=== PATIENT | male | born 1940 | race Caucasian/White ===

== ENCOUNTER 2016-10-05 10:04 | Emergency (ER) | payer OTHER ==
[~2016-10-05] VITALS: Ht 182.9 cm; Wt 90.7 kg
[~2016-10-05 10:04] MED LIST: ASPI325T2 PO; LISI-209 PO; LUTE20TA PO; PARO20TA51 PO
[2016-10-05 10:09] VITALS: BP_SYST 165
--- NOTE | 2016-10-05 10:16 | NUR ---
Placed in room 3 . Placed on director of cardiac cath lab, blood pressure machine and pulse oximeter. To gown for exam. Side rails up. Report given to Yin FAYE.
--- NOTE | 2016-10-05 10:18 | NUR ---
DR LAWRENCE AT [facility] FOR EVALUATION. PT STATES SHARP CHEST PAIN LAST NIGHT AT 2100, LASTING 2 SECONDS. DENIES ANY CHEST PAIN AT THIS TIME. PT IS [place], ABLE TO MAKE NEEDS KNOWN.
[2016-10-05 10:33] LABS: BASOPHILS % (AUTO) 0.5 % (0.0-2.0); EOSINOPHILS % (AUTO) 0.5 % (0.0-4.0); HEMATOCRIT 41.9 % (36-54); HEMOGLOBIN 14.3 g/dL (14.0-18.0); LYMPHOCYTES # (AUTO) 0.7 K/uL (1.0-5.5); MEAN CORPUSCULAR HEMOGLOBIN 29 pg (27-31); MEAN CORPUSCULAR HGB CONC 34 % (32-36); MEAN CORPUSCULAR VOLUME 86 fL (79.0-98.0); MONOCYTES # (AUTO) 0.7 K/uL (0.0-1.0); MONOCYTES % (AUTO) 8.3 % (1.7-9.3); NEUTROPHILS # (AUTO) 6.8 K/uL (1.8-7.7); NEUTROPHILS % (AUTO) 82.7 % (40.0-70.0); PLATELET COUNT (AUTO) 265 K/uL (130-430); RED BLOOD CELL COUNT(AUTO) 4.87 MIL/uL (4.2-6.2); RED CELL DISTRIBUTION WIDTH 12.3 % (9.0-15.0); WHITE BLOOD COUNT (AUTO) 8.2 K/uL (4.8-10.8)
[2016-10-05] MEDS ORDERED: ASCO500T20 PO (10:33)
[2016-10-05] MEDS ORDERED: VITD400 PO (10:33)
[2016-10-05 10:41] LABS: ANION GAP 3 (5-15); CALCIUM 8.6 mg/dL (8.4-11.0); CHLORIDE 104 mmol/L (98-107); GLUCOSE 133 mg/dL (70-99); POTASSIUM 3.2 mmol/L (3.5-5.1); SODIUM SERUM 136 mmol/L (136-145); UREA NITROGEN, BLOOD 17 mg/dL (8-21)
[2016-10-05 10:44] LABS: INR 1.1 (0.80-1.20); PROTHROMBIN TIME 11.6 SECS (9.5-12.5)
--- NOTE | 2016-10-05 10:45 | NUR ---
NO FURTHER COMPLAINTS OF PAIN OR CHEST PAIN
[2016-10-05 10:46] LABS: ALANINE AMINOTRANSFERASE 16 U/L (12-78); ALBUMIN 3.7 g/dL (3.4-4.8); ASPARTATE AMINOTRANSFERASE 12 U/L (10-37); CREATINE KINASE, TOTAL 48 U/L (39-308); TOTAL BILIRUBIN 0.9 mg/dL (0.0-1.0); TOTAL PROTEIN, SERUM 7.3 g/dL (6.4-8.3)
--- NOTE | 2016-10-05 11:11 | NUR ---
DR LAWRENCE AT BEDSIDE FOR RE-EVALUATION
[2016-10-05 11:19] VITALS: BP_SYST 147
--- NOTE | 2016-10-05 11:19 | NUR ---
Patient given written and verbal discharge instructions and verbalizes understanding. ER MD discussed with patient the results and treatment provided. Given copies of tests performed in ER. Patient in stable condition. ID arm band removed. IV catheter removed intact and dressing applied, no active bleeding. Rx of IBUPROFEN given. Patient educated on pain management and to follow up with PMD. Pain Scale 0/10. Opportunity for questions provided and answered.
== END 2016-10-05 11:19 | disposition home or self-care (01) ==
LOC: SED 10:04
DX: R07.89 Other chest pain (principal); Z85.068 Personal history of other malignant neoplasm of small intestine
CPT/HCPCS: 36415; 71010; 80053; 82550-TC; 83880; 84484; 85025; 85610-TC; 85730-TC; 99285

== ENCOUNTER 2018-09-29 10:05 | Emergency (ER) | payer OTHER ==
[~2018-09-29] VITALS: Ht 180.3 cm; Wt 95.3 kg
[~2018-09-29 10:05] MED LIST changes: +ASCO500T20 PO; +ASPI-858 PO; -ASPI325T2 PO; +PARO-63 PO; -PARO20TA51 PO; +VITD400 PO
[2018-09-29 10:14] VITALS: BP_SYST 165
[2018-09-29 12:37] VITALS: BP_SYST 165
== END 2018-09-29 12:37 | disposition home or self-care (01) ==
LOC: SED 10:05
DX: S01.112A Laceration without foreign body of left eyelid and periocular area, initial encounter (principal); Z85.068 Personal history of other malignant neoplasm of small intestine; Z79.82 Long term (current) use of aspirin; Z79.899 Other long term (current) drug therapy; W01.198A Fall on same level from slipping, tripping and stumbling with subsequent striking against other object, initial encounter; Y93.01 Activity, walking, marching and hiking; Y92.89 Other specified places as the place of occurrence of the external cause; Y99.8 Other external cause status
CPT/HCPCS: 70450-TC; 99284

== ENCOUNTER 2019-04-01 18:37 | Emergency (ER) | payer OTHER ==
[~2019-04-01] VITALS: Ht 182.9 cm; Wt 81.6 kg
[2019-04-01 18:48] VITALS: BP_SYST 167
--- NOTE | 2019-04-01 18:50 | NUR ---
Patient to ER bed 08 to gown for evaluation. Side rails up.
--- NOTE | 2019-04-01 18:52 | NUR ---
Pt brought by , Lorraine&Ox4, pt presens to ER with pain on L upper abdomen and nausea, skin pink and warm, cap refill <3, afebrile, VSS, respirations even and unlabored. Addendum: 04/01/19 at 1905 by SDEDAFJ Per pt also has swelling of the nose for couple days, skin pink and warm, cap refill <3.
--- NOTE | 2019-04-01 18:55 | NUR ---
Dr Gonzales at bedside examining patient
[2019-04-01 19:38] LABS: BASOPHILS # (AUTO) 0.1 K/uL (0.0-0.2); BASOPHILS % (AUTO) 0.6 % (0.0-2.0); EOSINOPHILS % (AUTO) 0.5 % (0.0-4.0); HEMATOCRIT 38.3 % (36-54); HEMOGLOBIN 13.4 g/dL (14.0-18.0); LYMPHOCYTES # (AUTO) 0.4 K/uL (1.0-5.5); LYMPHOCYTES % (AUTO) 3.9 % (20.5-51.5); MEAN CORPUSCULAR HEMOGLOBIN 30 pg (27-31); MEAN CORPUSCULAR HGB CONC 35 % (32-36); MEAN CORPUSCULAR VOLUME 86 fL (79.0-98.0); MONOCYTES # (AUTO) 0.6 K/uL (0.0-1.0); MONOCYTES % (AUTO) 5.9 % (1.7-9.3); NEUTROPHILS # (AUTO) 8.9 K/uL (1.8-7.7); NEUTROPHILS % (AUTO) 89.1 % (40.0-70.0); PLATELET COUNT (AUTO) 275 K/uL (130-430); RED BLOOD CELL COUNT(AUTO) 4.47 MIL/uL (4.2-6.2)
[2019-04-01 19:49] LABS: BILIRUBIN,URINE NEGATIVE (NEGATIVE); BLOOD, URINE 3+ (NEGATIVE); CLARITY/URINE SL HAZY (CLEAR); COLOR,URINE YELLOW (YELLOW); GLUCOSE,URINE NEGATIVE (NEGATIVE); KETONES,URINE NEGATIVE (NEGATIVE); LEUKOCYTE ESTERASE ,URINE NEGATIVE (NEGATIVE); NITRITE, URINE NEGATIVE (NEGATIVE); PROTEIN URINE 1+ (NEGATIVE)
[2019-04-01 19:49] LABS: ANION GAP 7 (5-15); CALCIUM 8.8 mg/dL (8.4-11.0); CHLORIDE 103 mmol/L (98-107); CREATININE 1.05 mg/dL (0.55-1.30); GLUCOSE 116 mg/dL (70-99); POTASSIUM 3.3 mmol/L (3.5-5.1); SODIUM SERUM 141 mmol/L (136-145); UREA NITROGEN, BLOOD 14 mg/dL (8-21)
[2019-04-01 19:55] LABS: ALANINE AMINOTRANSFERASE 15 U/L (12-78); ALBUMIN 3.7 g/dL (3.4-4.8); ASPARTATE AMINOTRANSFERASE 16 U/L (10-37); TOTAL BILIRUBIN 0.5 mg/dL (0.0-1.0)
[2019-04-01 19:59] LABS: BACTERIA,URINE FEW /HPF (None Seen); MUCUS,URINE None Seen /LPF (None Seen); WBC,URINE 0-3 /HPF (0-3)
--- NOTE | 2019-04-01 20:00 | NUR ---
ER Dr. Saucedo at bedside examining patient.
[2019-04-01] MEDS ORDERED: MORPHINE 4 MG/ML INJ. SYRINGE IVP ONE (20:30)
--- NOTE | 2019-04-01 20:40 | NUR ---
During Morphine administration pt became nauseous and vomited. Dr. Saucedo was notified and pt was given 4mg of Zofran. Will continue to monitor.
[2019-04-01] MEDS ORDERED: ONDANSETRON HCL 4 MG/2 ML VIAL IVP ONE (20:45)
[2019-04-01] MEDS ORDERED: ONDANSETRON HCL 4 MG/2 ML VIAL ONE (20:52)
--- NOTE | 2019-04-01 21:20 | NUR ---
Pt is resting in bed no acute distress noted at this time. Will continue to monitor.
[2019-04-01] MEDS ORDERED: MAGNESIUM CITRATE 300 ML ORAL SOLUTION PO ONE (21:30)
[2019-04-01 21:39] VITALS: BP_SYST 142
--- NOTE | 2019-04-01 21:45 | NUR ---
Patient given written and verbal discharge instructions and verbalizes understanding. ER MD discussed with patient the results and treatment provided. Patient in stable condition. ID arm band removed. IV catheter removed intact and dressing applied, no active bleeding. Patient educated on pain management and to follow up with PMD. Pain Scale 0. Opportunity for questions provided and answered. Medication side effect fact sheet provided.
== END 2019-04-01 21:45 | disposition home or self-care (01) ==
LOC: SED 18:37
DX: K40.90 Unilateral inguinal hernia, without obstruction or gangrene, not specified as recurrent (principal); K59.00 Constipation, unspecified; Z85.068 Personal history of other malignant neoplasm of small intestine; Z79.82 Long term (current) use of aspirin; Z79.899 Other long term (current) drug therapy
CPT/HCPCS: 36415; 70486; 74176; 80053; 81000; 85025; 96374; 96375; 99284; J2270; J2405

== ENCOUNTER 2020-12-04 01:43 | Observation (INO) | payer OTHER, SELFPAY ==
[2020-12-04] VITALS (7 sets, daily range): BP systolic 101–158
[~2020-12-04] VITALS: Ht 182.9 cm; Wt 91.9 kg
[2020-12-04] MEDS ORDERED: DILTIAZEM HCL 25 MG/5 ML VIAL IVP ONE (02:15)
[2020-12-04 02:29] LABS: BASOPHILS % (AUTO) 0.4 % (0.0-2.0); EOSINOPHILS # (AUTO) 0.2 K/uL (0.0-0.4); HEMATOCRIT 40.3 % (36-54); HEMOGLOBIN 14.1 g/dL (14.0-18.0); LYMPHOCYTES # (AUTO) 0.8 K/uL (1.0-5.5); MEAN CORPUSCULAR HEMOGLOBIN 30 pg (27-31); MEAN CORPUSCULAR HGB CONC 35 % (32-36); MEAN CORPUSCULAR VOLUME 86 fL (79.0-98.0); MONOCYTES # (AUTO) 0.6 K/uL (0.0-1.0); MONOCYTES % (AUTO) 9.8 % (1.7-9.3); NEUTROPHILS # (AUTO) 4.4 K/uL (1.8-7.7); NEUTROPHILS % (AUTO) 73.8 % (40.0-70.0); PLATELET COUNT (AUTO) 233 K/uL (130-430); RED BLOOD CELL COUNT(AUTO) 4.69 MIL/uL (4.2-6.2); RED CELL DISTRIBUTION WIDTH 13.1 % (9.0-15.0); WHITE BLOOD COUNT (AUTO) 5.9 K/uL (4.8-10.8)
[2020-12-04 02:37] LABS: ANION GAP 7 (5-15); CHLORIDE 107 mmol/L (98-107); CREATININE 0.99 mg/dL (0.55-1.30); GLUCOSE 123 mg/dL (70-99); POTASSIUM 3.4 mmol/L (3.5-5.1); SODIUM SERUM 144 mmol/L (136-145); UREA NITROGEN, BLOOD 15 mg/dL (8-21)
[2020-12-04 02:39] LABS: PROTHROMBIN TIME 10.7 SECS (9.5-12.5)
[2020-12-04 02:41] LABS: ALANINE AMINOTRANSFERASE 18 U/L (12-78); ALBUMIN 3.4 g/dL (3.4-4.8); ASPARTATE AMINOTRANSFERASE 16 U/L (10-37); TOTAL BILIRUBIN 0.6 mg/dL (0.0-1.0)
[2020-12-04 05:10] LABS: BILIRUBIN,URINE NEGATIVE (NEGATIVE); BLOOD, URINE 1+ (NEGATIVE); CLARITY/URINE CLEAR (CLEAR); COLOR,URINE YELLOW (YELLOW); GLUCOSE,URINE NEGATIVE (NEGATIVE); KETONES,URINE NEGATIVE (NEGATIVE); LEUKOCYTE ESTERASE ,URINE NEGATIVE (NEGATIVE); NITRITE, URINE NEGATIVE (NEGATIVE); PROTEIN URINE TRACE (NEGATIVE)
[2020-12-04] MEDS ORDERED: LORazepam 2 MG/ML VIAL IVP PRN (05:30)
[2020-12-04] MEDS ORDERED: HYDROcodone/ACETAMIN 5-325 MG TAB (NORCO/ VICODIN) PO PRN (05:30)
[2020-12-04] MEDS ORDERED: NALOXONE HCL 0.4 MG/ML AMP (NARCAN) IVP PRN (05:30)
[2020-12-04] MEDS ORDERED: ALBUTEROL SULFATE 0.083% 2.5 MG/3 ML VIAL.NEB INH PRN (05:30)
[2020-12-04] MEDS ORDERED: MORPHINE 4 MG INJ. 4 MG/ML VIAL IVP PRN (05:30)
[2020-12-04 06:16] LABS: BACTERIA,URINE FEW /HPF (None Seen); WBC,URINE 0-3 /HPF (0-3)
[2020-12-04] MEDS: ASPIRIN 325 MG TABLET PO SCH (08:08)
[2020-12-04] MEDS: ENOXAPARIN SODIUM 40 MG/0.4 ML SYRINGE SUBCUT SCH (08:09)
[2020-12-04 08:55] LABS: BASOPHILS % (AUTO) 0.5 % (0.0-2.0); EOSINOPHILS # (AUTO) 0.1 K/uL (0.0-0.4); HEMATOCRIT 41.3 % (36-54); HEMOGLOBIN 14.3 g/dL (14.0-18.0); LYMPHOCYTES % (AUTO) 16.7 % (20.5-51.5); MEAN CORPUSCULAR HEMOGLOBIN 30 pg (27-31); MEAN CORPUSCULAR HGB CONC 35 % (32-36); MEAN CORPUSCULAR VOLUME 87 fL (79.0-98.0); MONOCYTES # (AUTO) 0.6 K/uL (0.0-1.0); MONOCYTES % (AUTO) 9.2 % (1.7-9.3); NEUTROPHILS # (AUTO) 4.4 K/uL (1.8-7.7); NEUTROPHILS % (AUTO) 71.6 % (40.0-70.0); PLATELET COUNT (AUTO) 223 K/uL (130-430); RED BLOOD CELL COUNT(AUTO) 4.75 MIL/uL (4.2-6.2); WHITE BLOOD COUNT (AUTO) 6.1 K/uL (4.8-10.8)
[2020-12-04] MEDS ORDERED: METOPROLOL SUCCINATE 25 MG TAB.SR.24H (TOPROL XL) PO ONE (09:00)
[2020-12-04 09:08] LABS: ALANINE AMINOTRANSFERASE 13 U/L (12-78); ALBUMIN 3.2 g/dL (3.4-4.8); ANION GAP 7 (5-15); ASPARTATE AMINOTRANSFERASE 16 U/L (10-37); CALCIUM 8.2 mg/dL (8.4-11.0); CHLORIDE 108 mmol/L (98-107); CREATININE 0.99 mg/dL (0.55-1.30); GLUCOSE 107 mg/dL (70-99); POTASSIUM 3.6 mmol/L (3.5-5.1); SODIUM SERUM 145 mmol/L (136-145); THYROID STIMULATING HORMONE 3.19 uIu/mL (0.36-3.74); TOTAL BILIRUBIN 0.8 mg/dL (0.0-1.0); UREA NITROGEN, BLOOD 14 mg/dL (8-21)
[2020-12-05 00:57] VITALS: BP_SYST 166
[2020-12-05 06:54] LABS: BASOPHILS % (AUTO) 0.8 % (0.0-2.0); EOSINOPHILS # (AUTO) 0.2 K/uL (0.0-0.4); EOSINOPHILS % (AUTO) 3.1 % (0.0-4.0); HEMATOCRIT 38.1 % (36-54); HEMOGLOBIN 13.1 g/dL (14.0-18.0); LYMPHOCYTES # (AUTO) 0.8 K/uL (1.0-5.5); LYMPHOCYTES % (AUTO) 16.5 % (20.5-51.5); MEAN CORPUSCULAR HEMOGLOBIN 30 pg (27-31); MEAN CORPUSCULAR HGB CONC 34 % (32-36); MEAN CORPUSCULAR VOLUME 86 fL (79.0-98.0); MONOCYTES # (AUTO) 0.4 K/uL (0.0-1.0); MONOCYTES % (AUTO) 9.1 % (1.7-9.3); NEUTROPHILS # (AUTO) 3.5 K/uL (1.8-7.7); NEUTROPHILS % (AUTO) 70.5 % (40.0-70.0); PLATELET COUNT (AUTO) 211 K/uL (130-430); RED BLOOD CELL COUNT(AUTO) 4.45 MIL/uL (4.2-6.2); RED CELL DISTRIBUTION WIDTH 12.8 % (9.0-15.0); WHITE BLOOD COUNT (AUTO) 4.9 K/uL (4.8-10.8)
[2020-12-05 07:25] LABS: ALANINE AMINOTRANSFERASE 14 U/L (12-78); ANION GAP 10 (5-15); ASPARTATE AMINOTRANSFERASE 16 U/L (10-37); CALCIUM 8.5 mg/dL (8.4-11.0); CHLORIDE 107 mmol/L (98-107); CREATININE 0.89 mg/dL (0.55-1.30); GLUCOSE 98 mg/dL (70-99); POTASSIUM 3.6 mmol/L (3.5-5.1); SODIUM SERUM 143 mmol/L (136-145); THYROID STIMULATING HORMONE 1.54 uIu/mL (0.36-3.74); UREA NITROGEN, BLOOD 18 mg/dL (8-21)
[2020-12-05 08:26] VITALS: BP_SYST 163
[2020-12-05] MEDS: ASPIRIN 325 MG TABLET PO SCH (08:42)
[2020-12-05] MEDS: ENOXAPARIN SODIUM 40 MG/0.4 ML SYRINGE SUBCUT SCH (08:44)
[2020-12-05] MEDS ORDERED: METOPROLOL SUCCINATE 25 MG TAB.SR.24H (TOPROL XL) PO SCH (09:00)
[2020-12-05] MEDS ORDERED: APIX5TAB4 PO (10:09)
[2020-12-05] MEDS ORDERED: METO-540 PO (10:09)
[2020-12-05 12:17] VITALS: BP_SYST 158
[2020-12-05 12:27] VITALS: BP_SYST 168
[2020-12-05] MEDS ORDERED: RIVAROXABAN 10 MG TABLET PO SCH (18:00)
[2020-12-06] MEDS ORDERED: METOPROLOL SUCCINATE 25 MG TAB.SR.24H (TOPROL XL) PO SCH (09:00)
== END 2020-12-05 14:55 | disposition home or self-care (01) ==
LOC: SED 01:43 → STU 02:49 → INTOOBSV 02:49 → STU 03:05
PROVIDERS: ADMIT Internal Medicine Hospice and Palliative Medicine; ATTEND Internal Medicine Hospice and Palliative Medicine
DX: I48.0 Paroxysmal atrial fibrillation (principal); Z20.822 Contact with and (suspected) exposure to COVID-19; I48.92 Unspecified atrial flutter; I21.A1 Myocardial infarction type 2; E87.6 Hypokalemia; I10 Essential (primary) hypertension; H35.30 Unspecified macular degeneration; Z79.899 Other long term (current) drug therapy; Z98.890 Other specified postprocedural states; Z85.038 Personal history of other malignant neoplasm of large intestine; Z85.068 Personal history of other malignant neoplasm of small intestine
CPT/HCPCS: 36415 ×2; 71045; 80053 ×2; 81000; 83880; 84443 ×2; 84484 ×2; 85025 ×2; 85379; 85610; 87426; 93005 ×2; 93306; 96372 ×2; 96374; 99285; G0378 ×2; J1650 ×2; J7613

== ENCOUNTER 2020-12-23 12:48 | Emergency (ER) | payer OTHER, SELFPAY ==
[~2020-12-23] VITALS: Ht 182.9 cm; Wt 95.3 kg
[~2020-12-23 12:48] MED LIST changes: +APIX5TAB4 PO; +METO-540 PO
[2020-12-23 13:17] VITALS: BP_SYST 171
--- NOTE | 2020-12-23 13:21 | NUR ---
Patient to ER bed 2 to gown for evaluation. Side rails up. Report given to Renea FAYE.
--- NOTE | 2020-12-23 14:00 | NUR ---
Pt. bib brother in law with c/o pain to right flank area x 1 week, denies difficulty urinating or pain with urination, rates pain 6/10, states only med hx is cardiac problems
--- NOTE | 2020-12-23 14:03 | NUR ---
ODETTE Calderon at bedside examining patient.
[2020-12-23] MEDS ORDERED: NACL 0.9% 1,000 ML IV ONE (14:15)
[2020-12-23] MEDS ORDERED: KETOROLAC TROMETHAMINE 30 MG VIAL IVP ONE (14:15)
--- NOTE | 2020-12-23 14:30 | NUR ---
Patient transported to radiology via wheelchair, accompanied by staff.
[2020-12-23 14:35] LABS: BILIRUBIN,URINE NEGATIVE (NEGATIVE); BLOOD, URINE 3+ (NEGATIVE); CLARITY/URINE CLEAR (CLEAR); COLOR,URINE YELLOW (YELLOW); GLUCOSE,URINE NEGATIVE (NEGATIVE); KETONES,URINE NEGATIVE (NEGATIVE); LEUKOCYTE ESTERASE ,URINE NEGATIVE (NEGATIVE); NITRITE, URINE NEGATIVE (NEGATIVE); PH,URINE 5.5 (5.0-8.0); PROTEIN URINE TRACE (NEGATIVE)
[2020-12-23 14:39] LABS: BASOPHILS % (AUTO) 0.7 % (0.0-2.0); EOSINOPHILS # (AUTO) 0.1 K/uL (0.0-0.4); EOSINOPHILS % (AUTO) 1.5 % (0.0-4.0); HEMATOCRIT 40.3 % (36-54); LYMPHOCYTES # (AUTO) 0.7 K/uL (1.0-5.5); LYMPHOCYTES % (AUTO) 11.9 % (20.5-51.5); MEAN CORPUSCULAR HEMOGLOBIN 30 pg (27-31); MEAN CORPUSCULAR HGB CONC 35 % (32-36); MEAN CORPUSCULAR VOLUME 86 fL (79.0-98.0); MONOCYTES # (AUTO) 0.5 K/uL (0.0-1.0); MONOCYTES % (AUTO) 8.1 % (1.7-9.3); NEUTROPHILS # (AUTO) 4.8 K/uL (1.8-7.7); NEUTROPHILS % (AUTO) 77.8 % (40.0-70.0); PLATELET COUNT (AUTO) 250 K/uL (130-430); RED BLOOD CELL COUNT(AUTO) 4.67 MIL/uL (4.2-6.2); WHITE BLOOD COUNT (AUTO) 6.2 K/uL (4.8-10.8)
[2020-12-23 14:44] LABS: BACTERIA,URINE None Seen /HPF (None Seen); MUCUS,URINE None Seen /LPF (None Seen); RBC,URINE 0-3 /HPF (0-3); WBC,URINE NONE SEEN /HPF (0-3)
[2020-12-23 14:57] LABS: ANION GAP 9 (5-15); CALCIUM 8.8 mg/dL (8.4-11.0); CHLORIDE 105 mmol/L (98-107); CREATININE 1.11 mg/dL (0.55-1.30); GLUCOSE 100 mg/dL (70-99); SODIUM SERUM 141 mmol/L (136-145); UREA NITROGEN, BLOOD 19 mg/dL (8-21)
[2020-12-23 15:03] LABS: ALANINE AMINOTRANSFERASE 17 U/L (12-78); ALBUMIN 3.7 g/dL (3.4-4.8); ASPARTATE AMINOTRANSFERASE 18 U/L (10-37); TOTAL BILIRUBIN 1.1 mg/dL (0.0-1.0)
[2020-12-23] MEDS ORDERED: HYDR-3917 PO ×2 (16:30→17:30)
[2020-12-23 17:28] VITALS: BP_SYST 161
--- NOTE | 2020-12-23 17:29 | NUR ---
Patient given written and verbal discharge instructions and verbalizes understanding. Dr. Melendez discussed with patient the results and treatment provided. Patient in stable condition. ID arm band removed. IV catheter removed intact and dressing applied, no active bleeding. Rx of Norcoi given. Patient educated on pain management and to follow up with PMD. Pain Scale 3. Opportunity for questions provided and answered. Medication side effect fact sheet provided.
== END 2020-12-23 17:28 | disposition home or self-care (01) ==
LOC: SED 12:48
DX: M54.16 Radiculopathy, lumbar region (principal); N20.0 Calculus of kidney; D73.89 Other diseases of spleen; K76.89 Other specified diseases of liver; I15.9 Secondary hypertension, unspecified; Z79.01 Long term (current) use of anticoagulants; Z85.46 Personal history of malignant neoplasm of prostate; Z79.899 Other long term (current) drug therapy; Z79.82 Long term (current) use of aspirin
CPT/HCPCS: 36415; 72131; 74176; 76376; 80053; 81000; 83605; 85025; 87040; 96361; 96374; 99285; J1885; J7030

== ENCOUNTER 2022-02-04 00:39 | Inpatient (IN) | payer OTHER ==
[~2022-02-04] VITALS: Ht 182.9 cm; Wt 89.4 kg
[2022-02-04] VITALS (7 sets, daily range): BP systolic 135–154
[~2022-02-04 00:39] MED LIST changes: +HYDR-3917 PO
--- NOTE | 2022-02-04 01:10 | NUR ---
Patient to ER bed 06 for evaluation. Side rails up.
--- NOTE | 2022-02-04 01:11 | NUR ---
Dr. Pierce with patient for evaluation.
--- NOTE | 2022-02-04 01:15 | NUR ---
PT BROUGHT IN BY DAUGHTER FROM HOME WITH C/O OF 2 UNWITNESSED FALLS, N/V FOR 2 DAYS, WEAKNESS AND DIARRHEA. PER PT DAUGHTER PT HAS BEEN DENYING FOOD FOR 2 DAYS AND IS MORE CONFUSED THEN NORMAL. PT A&O X4, WEAK GAIT, AND FOLLOWING COMMANDS. PT KIANA, HX MACULAR DEGENERATION, PROSTATE CANCER.
[2022-02-04] MEDS ORDERED: cefTRIAXone 1 GM IVPB PREMIX 50 ML IV ONE (01:30)
[2022-02-04] MEDS ORDERED: NS 1000 ML IV.SOLN IV ONE (01:30)
--- NOTE | 2022-02-04 01:34 | NUR ---
ROSS RN BIB W/C WITH TRIAGE NURSE. REPORT FROM [facility]. C/O FALL X2, UNWITTNESSED SEAKNESS, N/V/D/AND FEVER X 2 DAYS. DNIES FOOD, MORE CONFUSED THAN NORMAL KAKE
[2022-02-04 02:20] LABS: BASOPHILS % (AUTO) 0.2 % (0.0-2.0); EOSINOPHILS % (AUTO) 0.1 % (0.0-4.0); HEMATOCRIT 39.6 % (36-54); HEMOGLOBIN 13.8 g/dL (14.0-18.0); LYMPHOCYTES # (AUTO) 0.3 K/uL (1.0-5.5); LYMPHOCYTES % (AUTO) 8.6 % (20.5-51.5); MEAN CORPUSCULAR HEMOGLOBIN 30 pg (27-31); MEAN CORPUSCULAR HGB CONC 35 % (32-36); MEAN CORPUSCULAR VOLUME 87 fL (79.0-98.0); MONOCYTES # (AUTO) 0.5 K/uL (0.0-1.0); MONOCYTES % (AUTO) 13.6 % (1.7-9.3); NEUTROPHILS # (AUTO) 2.6 K/uL (1.8-7.7); NEUTROPHILS % (AUTO) 77.5 % (40.0-70.0); PLATELET COUNT (AUTO) 169 K/uL (130-430); RED BLOOD CELL COUNT(AUTO) 4.55 MIL/uL (4.2-6.2); RED CELL DISTRIBUTION WIDTH 13.4 % (9.0-15.0); WHITE BLOOD COUNT (AUTO) 3.3 K/uL (4.8-10.8)
--- NOTE | 2022-02-04 02:27 | NUR ---
TO CT SCAN VIA [facility] WITH TECH
[2022-02-04 03:15] LABS: ALANINE AMINOTRANSFERASE 17 U/L (12-78); ALBUMIN 3.6 g/dL (3.4-4.8); ASPARTATE AMINOTRANSFERASE 57 U/L (10-37); CALCIUM 8.7 mg/dL (8.4-11.0); CREATININE 1.55 mg/dL (0.55-1.30); GLUCOSE 115 mg/dL (70-99); TOTAL BILIRUBIN 0.7 mg/dL (0.0-1.0); UREA NITROGEN, BLOOD 22 mg/dL (8-21)
--- NOTE | 2022-02-04 03:30 | NUR ---
PT O2 sat decreased to 90% while sleeping. Applied NC at 2L. PT O2 sat at 95% now. Dr. Pierce made aware.
--- NOTE | 2022-02-04 03:59 | NUR ---
Critical lab value reported.
[2022-02-04] MEDS ORDERED: ASPIRIN 325 MG TABLET PO ONE (04:00)
[2022-02-04 04:20] LABS: ANION GAP 9 (5-15); CHLORIDE 100 mmol/L (98-107); POTASSIUM 3.4 mmol/L (3.5-5.1); SODIUM SERUM 135 mmol/L (136-145)
--- NOTE | 2022-02-04 04:36 | NUR ---
PT RESTING COMFORTABLY. NO C/O DISCOMFORT AT THIS TIME. VSS CONTUED OBSERVATION
--- NOTE | 2022-02-04 05:13 | NUR ---
UA COLLECTED AND SENT TO LAB
--- NOTE | 2022-02-04 06:36 | NUR ---
ADMIT NOTE Received pt from ER to the floor with a diagnosis of COVID pneumonia, renal failure. Admission process initiated. Patient oriented to pain management, safety and call light-teach back done.
--- NOTE | 2022-02-04 06:37 | NUR ---
PT STABLE FOR ADMISSION TO ROOM #124B. TO ROOM VIA [facility] ON MONITOR WITH RN. REPORT TO YUNIER SEALS. ALL PAPERWORK TO FLOOR
[2022-02-04 06:40] LABS: BILIRUBIN,URINE NEGATIVE (NEGATIVE); BLOOD, URINE 3+ (NEGATIVE); CLARITY/URINE HAZY (CLEAR); COLOR,URINE YELLOW (YELLOW); GLUCOSE,URINE NEGATIVE (NEGATIVE); KETONES,URINE TRACE (NEGATIVE); LEUKOCYTE ESTERASE ,URINE NEGATIVE (NEGATIVE); NITRITE, URINE NEGATIVE (NEGATIVE); PROTEIN URINE 1+ (NEGATIVE); UROBILINOGEN,URINE 0.2 (0.2-1.0)
[2022-02-04 07:10] LABS: BACTERIA,URINE FEW /HPF (None Seen); MUCUS,URINE 1+ /LPF (None Seen)
--- NOTE | 2022-02-04 08:00 | NUR ---
OPENING NOTES: RECEIVED PATIENT FROM TOOL CRIB ATTENDANT RN. PATIENT RESTING IN BED. BREATHING EVEN AND NON LABORED TO O2 AT 2L/NC. PATIENT ORIENTED TO ROOM. CALL LIGHT WITHIN REACH. BED LOCKED, ALARM ON AND IN LOWEST POSITION. FALL, SAFETY AND ASPIRATION MEASURES REINFORCED.
--- NOTE | 2022-02-04 09:09 | NUR ---
CONSULTATION PAGED/CALLED Reason for Consultation: []Increase Troponin Person Who was Notified: [][place] Consulting Physician: [] Jeimy Becerril In File Operator Specialty: []Cardio Ordering Physician: []Lorraine Becerril
--- NOTE | 2022-02-04 09:13 | NUR ---
CONSULTATION PAGED/CALLED Reason for Consultation: []Renal failure Person Who was Notified: []spoke with Dr. Mancini Consulting Physician: [] Dr. Mancini Marine Underwriter Specialty: []Nephro Ordering Physician: []Lorraine Becerril
--- NOTE | 2022-02-04 10:59 | NUR ---
SPOKE TO DR. Carrie Hill: Spoke to Dr. Carrie Hill for med reconciliation and for elevated troponin. Per Dr. Carrie Hill, he will order repeat troponin and reconcile meds. Dr. Phoenix Hill, the trimmer machine already paged for consult.
[2022-02-04] MEDS ORDERED: HYDROcodone/ACETAMIN 5-325 MG TAB (NORCO/ VICODIN) PO PRN (11:15)
[2022-02-04] MEDS ORDERED: ONDANSETRON HCL 4 MG/2 ML VIAL IVP PRN (11:15)
[2022-02-04] MEDS ORDERED: ACETAMINOPHEN 325 MG TABLET PO PRN (11:15)
[2022-02-04] MEDS ORDERED: NALOXONE HCL 0.4 MG/ML AMP (NARCAN) IVP PRN ×2 (11:15)
[2022-02-04] MEDS ORDERED: IPRATROPIUM BROM 0.5 MG/2.5 ML VIAL.NEB (ATROVENT) INH PRN (11:15)
[2022-02-04] MEDS ORDERED: HYDROcodone/ACETAMIN 10-325 MG TAB PO PRN (11:15)
[2022-02-04] MEDS ORDERED: ALBUTEROL SULFATE 0.083% 2.5 MG/3 ML VIAL.NEB INH PRN (11:15)
[2022-02-04] MEDS: DECADRON 4 MG TABLET PO SCH (12:19)
[2022-02-04] MEDS: D5/0.45 NS 1,000 ML IV SCH ×2 (12:20→21:15)
[2022-02-04] MEDS: AZITHROMYCIN 500 MG in NS 250 ML IV SCH (12:21)
--- NOTE | 2022-02-04 13:40 | NUR ---
Admission Assessment - Care Management Last Saved By: Mony Quinn Last Saved On: 02/04/2022 1:39 PM (PT) Created By: Mony Quinn Created On: 02/04/2022 1:38 PM (PT) Patient Information Patient Name: NAKIA JARVIS [address]: [address] [place], [place] [address] [address] SSN: : 1940 (age 81 years) Work Phone: [phone] Gender: Male Alternative Phone: Marital Status: Other Ethnicity: Not or or Arabic Origin Ethnicity 2: Patient's Information Who was Interviewed? Answers: Other - Specify (Caregiver, Family, Friend etc) Notes: Leatha yusuf DPOA What language does the patient speak? Answers: Mozambican Admitting Facility Answers: *[facility] [[id number]] Admitting Diagnosis fall, covid pna Advanced Care Planning (check all that apply) Answers: Advanced Directives? Notes: no Healthcare DPOA? If Yes - Name of DPOA/Relation Notes: Leatha Silva/[id number] Additional Patient Notes covid vaccine: x2 History and Prior Level of Function DME--PRIOR to Admission: Answers: No DME Cognitive--PRIOR to Admission: Answers: Alert & Orientated Home Setting--PRIOR to Admission: Answers: Private Home Notes: 2 story home, room 1st level lives w/dtra & Was patient receiving Home Health Services prior to Admission? Answers: No Potential Barriers to Discharge Anticipated Discharge Disposition Answers: Home with Does the patient have any potential barriers to DC? (indicate barrier & plan to address) Answers: NO, anticipate DC to previous living situations, no additional services anticipated Signature Signature: Signature Date Signed: 02/04/2022 1:39 PM (PT) Signed By: Mony Quinn Position: Inpatient Gauger Delivery Pager Number: Allscripts Generated (Scan) Page 1 Copyright 2021 [employer]. [Production([id number])]
--- NOTE | 2022-02-04 17:10 | NUR ---
Dr. Phoenix Hill paged (re: elevated troponin): Dr. Amado Hill paged regarding elevated troponin [phone]. Waiting for him to call back.
--- NOTE | 2022-02-04 19:15 | NUR ---
Closing notes: Patient resting in bed. No s/s of acute distress noted. IV infusing well. Fall and safety measures provided. Call light within reach. Needs met throughout shift.
--- NOTE | 2022-02-04 23:03 | NUR ---
Critical Lab Notified Dr. Carrie Hill of critical lab: Troponin 2343 Time: 230
[2022-02-05] VITALS (7 sets, daily range): BP systolic 122–151
--- NOTE | 2022-02-05 05:15 | NUR ---
Critical Lab Notified Dr Carrie Hill of critical lab: positive for Gram positive cocci Time: 514
[2022-02-05 07:16] LABS: ANION GAP 6 (5-15); CALCIUM 7.7 mg/dL (8.4-11.0); CHLORIDE 103 mmol/L (98-107); CREATININE 0.96 mg/dL (0.55-1.30); GLUCOSE 127 mg/dL (70-99); POTASSIUM 3.6 mmol/L (3.5-5.1); SODIUM SERUM 137 mmol/L (136-145); THYROID STIMULATING HORMONE 0.56 uIu/mL (0.36-3.74); UREA NITROGEN, BLOOD 16 mg/dL (8-21)
[2022-02-05 07:35] LABS: BASOPHILS % (AUTO) 0.3 % (0.0-2.0); EOSINOPHILS % (AUTO) 0.1 % (0.0-4.0); HEMATOCRIT 37.5 % (36-54); HEMOGLOBIN 13.2 g/dL (14.0-18.0); LYMPHOCYTES # (AUTO) 0.5 K/uL (1.0-5.5); LYMPHOCYTES % (AUTO) 23.5 % (20.5-51.5); MEAN CORPUSCULAR HEMOGLOBIN 30 pg (27-31); MEAN CORPUSCULAR HGB CONC 35 % (32-36); MEAN CORPUSCULAR VOLUME 85 fL (79.0-98.0); MONOCYTES # (AUTO) 0.3 K/uL (0.0-1.0); MONOCYTES % (AUTO) 17.6 % (1.7-9.3); NEUTROPHILS # (AUTO) 1.2 K/uL (1.8-7.7); NEUTROPHILS % (AUTO) 58.5 % (40.0-70.0); PLATELET COUNT (AUTO) 153 K/uL (130-430); RED BLOOD CELL COUNT(AUTO) 4.44 MIL/uL (4.2-6.2); RED CELL DISTRIBUTION WIDTH 13.3 % (9.0-15.0)
--- NOTE | 2022-02-05 08:00 | NUR ---
OPENING NOTES: RECEIVED PATIENT FROM TRAINING AND DEVELOPMENT PROJECT LEADER RN. PATIENT RESTING IN BED. BREATHING EVEN AND NON LABORED TO O2 AT 2L/NC. BED LOCKED, ALARM ON AND IN LOWEST POSITION. FALL, SAFETY AND ASPIRATION MEASURES REINFORCED. CALL LIGHT WITHIN REACH.
[2022-02-05] MEDS ORDERED: NON-FORMULARY MEDICATION (Lutein 20 MG) PO SCH (09:00)
[2022-02-05] MEDS: ENOXAPARIN SODIUM 40 MG/0.4 ML SYRINGE SUBCUT SCH (09:57)
[2022-02-05] MEDS: D5/0.45 NS 1,000 ML IV SCH ×2 (09:57→16:36)
[2022-02-05] MEDS: PARoxetine HCL 20 MG TABLET PO SCH (09:58)
[2022-02-05] MEDS: ASCORBIC ACID 500 MG TABLET PO SCH (09:58)
[2022-02-05] MEDS: METOPROLOL SUCCINATE 25 MG TAB.SR.24H (TOPROL XL) PO SCH (09:58)
[2022-02-05] MEDS: CHOLECALCIFEROL (VITAMIN D-3) 400 UNIT TABLET PO SCH (09:58)
[2022-02-05] MEDS: AZITHROMYCIN 500 MG in NS 250 ML IV SCH (11:07)
[2022-02-05] MEDS: DECADRON 4 MG TABLET PO SCH (11:07)
--- NOTE | 2022-02-05 12:17 | NUR ---
CONSULTATION PAGED/CALLED Reason for Consultation: []leukopenia Person Who was Notified: []September Consulting Physician: [] Dr. Tomlinson Auto Bumper Mechanic Specialty: []Onco Ordering Physician: []Lorraine Becerril
[2022-02-05] MEDS: VANCOMYCIN HCL 1,000 MG in NS 250 ML IV SCH ×2 (14:24→14:26)
--- NOTE | 2022-02-05 15:00 | NUR ---
INCONTINENT CARE DONE: INCONTINENT CARE DONE. NO S/S OF ACUTE DISTRESS NOTED. FALL AND SAFETY MEASURES RENDERED. CALL LIGHT WITHIN REACH.
--- NOTE | 2022-02-05 15:45 | NUR ---
DR. Jeimy JOHNSON PAGED (RE: high troponin): Dr. Phoenix Hill paged regarding critical value of troponin I ([phone]). Awaiting for him to call back.
[2022-02-05] MEDS ORDERED: TBO-FILGRASTIM 480 MCG/0.8 ML SYRINGE SUBCUT SCH (17:00)
--- NOTE | 2022-02-05 20:00 | NUR ---
OPENING NOTES: RECEIVED PATIENT FROM AM SHIFT RN. PATIENT RESTING IN BED. BREATHING EVEN AND NON LABORED TO O2 AT 2L/NC. PATIENT ORIENTED TO ROOM. AMBULATORY WITH BRP. CALL LIGHT WITHIN REACH. BED LOCKED, ALARM ON AND IN LOWEST POSITION. FALL, SAFETY AND ASPIRATION MEASURES REINFORCED.
--- NOTE | 2022-02-06 00:30 | NUR ---
cl REPORTED TROPONIN 1204 BY BERTRAND SEYMOUR IN LAB. NOTIFIED OF TROP TRENDING DOWNWARD.
[2022-02-06 00:38] VITALS: BP_SYST 121
[2022-02-06] MEDS: VANCOMYCIN HCL 1,000 MG in NS 250 ML IV SCH ×2 (01:03→13:00)
[2022-02-06] MEDS: D5/0.45 NS 1,000 ML IV SCH ×2 (03:54→13:15)
[2022-02-06 06:51] LABS: BASOPHILS % (AUTO) 0.2 % (0.0-2.0); HEMOGLOBIN 12.5 g/dL (14.0-18.0); LYMPHOCYTES # (AUTO) 0.6 K/uL (1.0-5.5); LYMPHOCYTES % (AUTO) 4.6 % (20.5-51.5); MEAN CORPUSCULAR HEMOGLOBIN 30 pg (27-31); MEAN CORPUSCULAR HGB CONC 36 % (32-36); MEAN CORPUSCULAR VOLUME 84 fL (79.0-98.0); MONOCYTES # (AUTO) 0.5 K/uL (0.0-1.0); MONOCYTES % (AUTO) 4.2 % (1.7-9.3); NEUTROPHILS # (AUTO) 11.4 K/uL (1.8-7.7); PLATELET COUNT (AUTO) 154 K/uL (130-430); RED BLOOD CELL COUNT(AUTO) 4.19 MIL/uL (4.2-6.2); RED CELL DISTRIBUTION WIDTH 13.3 % (9.0-15.0); WHITE BLOOD COUNT (AUTO) 12.5 K/uL (4.8-10.8)
[2022-02-06 07:45] LABS: CHOLESTEROL 164 mg/dL (<200); HDL CHOLESTEROL 47 mg/dL (>45); TRIGLYCERIDES 81 mg/dL (30-150)
[2022-02-06 07:46] LABS: LDL CHOLESTEROL 103 mg/dL (<100)
[2022-02-06 08:00] VITALS: BP_SYST 113
[2022-02-06 08:34] LABS: ANION GAP 7 (5-15); CALCIUM 7.4 mg/dL (8.4-11.0); CHLORIDE 104 mmol/L (98-107); CREATININE 0.87 mg/dL (0.55-1.30); GLUCOSE 97 mg/dL (70-99); POTASSIUM 3.3 mmol/L (3.5-5.1); SODIUM SERUM 137 mmol/L (136-145); UREA NITROGEN, BLOOD 14 mg/dL (8-21)
[2022-02-06 08:59] LABS: ALANINE AMINOTRANSFERASE 18 U/L (12-78); ALBUMIN 2.7 g/dL (3.4-4.8); ASPARTATE AMINOTRANSFERASE 32 U/L (10-37); PHOSPHORUS 2.3 mg/dL (2.7-4.5); TOTAL BILIRUBIN 0.8 mg/dL (0.0-1.0)
[2022-02-06] MEDS: METOPROLOL SUCCINATE 25 MG TAB.SR.24H (TOPROL XL) PO SCH (09:00)
--- NOTE | 2022-02-06 09:08 | NUR ---
critical lab informed RN of critical Troponin 1140
[2022-02-06 09:39] LABS: ERYTHROCYTE SEDIMENTATION RATE 13 MM/HR (0-15)
[2022-02-06] MEDS: PARoxetine HCL 20 MG TABLET PO SCH (09:40)
[2022-02-06] MEDS: CHOLECALCIFEROL (VITAMIN D-3) 400 UNIT TABLET PO SCH (09:41)
[2022-02-06] MEDS: ENOXAPARIN SODIUM 40 MG/0.4 ML SYRINGE SUBCUT SCH (09:41)
[2022-02-06] MEDS: ASCORBIC ACID 500 MG TABLET PO SCH (09:41)
--- NOTE | 2022-02-06 09:42 | NUR ---
Reported elevated troponin to retail and promotions coordinator, Sergio. has cleared the pt for physical therapy. will repeat troponin 2morrow
[2022-02-06 10:42] LABS: C-REACTIVE PROTEIN QUANT < 0.2 mg/dL (0-0.5)
[2022-02-06 12:05] VITALS: BP_SYST 116
[2022-02-06] MEDS: AZITHROMYCIN 500 MG in NS 250 ML IV SCH (12:25)
[2022-02-06] MEDS: DECADRON 4 MG TABLET PO SCH (12:25)
[2022-02-06] MEDS ORDERED: K PHOS 15 MM in NS 250 ML IV ONE (13:00)
[2022-02-06 16:10] VITALS: BP_SYST 133
--- NOTE | 2022-02-06 19:45 | NUR ---
Opening note Received patient awake, AOx2, resting in bed, no distress. Nonlabored breathing on 2L NC, skin is warm, dry. IVF and K+ rider infusing via IV to LFA. Bed is locked in lowest position, side rails up 3x, bed alarm on, and call light w/in reach.
[2022-02-06 20:00] VITALS: BP_SYST 145
--- NOTE | 2022-02-06 20:35 | NUR ---
Bed alarm, BM Patient is out of bed, in restroom and reports a bowel movement. He did not want to use the bed [place]. Bed linen was changed and he returned to bed. Safety, isolation precautions maintained.
--- NOTE | 2022-02-06 21:25 | NUR ---
Bed alarm, OOB Patient is back in bed, though he reports he was up for use of restroom. Again he was reminded to use call light and he agreed. Safety, isolation precautions maintained.
[2022-02-07] VITALS (7 sets, daily range): BP systolic 131–144
[2022-02-07] MEDS: VANCOMYCIN HCL 1,000 MG in NS 250 ML IV SCH ×2 (01:27→14:10)
[2022-02-07] MEDS: D5/0.45 NS 1,000 ML IV SCH ×3 (01:28→19:40)
--- NOTE | 2022-02-07 01:38 | NUR ---
Vanco, IVF Patient resting in bed w/eyes closed, no distress. Informed will receive IV antibiotic, he is [place] yet he seemed to understand and said ok. He requested another blanket; provided warm blanket. Hung new bag of fluids. Infusing well no s/sx of infiltration noted. Administered Vanco, infusing well. Bed alarm on, safety/isolation precautions in place.
[2022-02-07 07:21] LABS: ANION GAP 7 (5-15); CALCIUM 7.3 mg/dL (8.4-11.0); CHLORIDE 105 mmol/L (98-107); CREATININE 0.86 mg/dL (0.55-1.30); GLUCOSE 112 mg/dL (70-99); POTASSIUM 3.4 mmol/L (3.5-5.1); SODIUM SERUM 139 mmol/L (136-145); UREA NITROGEN, BLOOD 13 mg/dL (8-21)
[2022-02-07 07:57] LABS: C-REACTIVE PROTEIN QUANT < 0.2 mg/dL (0-0.5)
[2022-02-07 08:06] LABS: FOLATE (FOLIC ACID) 5.8 ng/mL (>3.0)
[2022-02-07 09:27] LABS: BASOPHILS # (AUTO) 0.1 K/uL (0.0-0.2); BASOPHILS % (AUTO) 0.4 % (0.0-2.0); HEMATOCRIT 35.8 % (36-54); HEMOGLOBIN 12.4 g/dL (14.0-18.0); LYMPHOCYTES # (AUTO) 0.7 K/uL (1.0-5.5); MEAN CORPUSCULAR HEMOGLOBIN 30 pg (27-31); MEAN CORPUSCULAR HGB CONC 35 % (32-36); MEAN CORPUSCULAR VOLUME 85 fL (79.0-98.0); MONOCYTES # (AUTO) 0.4 K/uL (0.0-1.0); MONOCYTES % (AUTO) 2.9 % (1.7-9.3); NEUTROPHILS # (AUTO) 13.1 K/uL (1.8-7.7); NEUTROPHILS % (AUTO) 91.7 % (40.0-70.0); PLATELET COUNT (AUTO) 147 K/uL (130-430); RED BLOOD CELL COUNT(AUTO) 4.19 MIL/uL (4.2-6.2); RED CELL DISTRIBUTION WIDTH 13.5 % (9.0-15.0); WHITE BLOOD COUNT (AUTO) 14.3 K/uL (4.8-10.8)
[2022-02-07] MEDS: PARoxetine HCL 20 MG TABLET PO SCH (09:53)
[2022-02-07] MEDS: ASCORBIC ACID 500 MG TABLET PO SCH (09:53)
[2022-02-07] MEDS: METOPROLOL SUCCINATE 25 MG TAB.SR.24H (TOPROL XL) PO SCH (09:54)
[2022-02-07] MEDS: CHOLECALCIFEROL (VITAMIN D-3) 400 UNIT TABLET PO SCH (09:54)
[2022-02-07] MEDS: ENOXAPARIN SODIUM 40 MG/0.4 ML SYRINGE SUBCUT SCH (09:54)
[2022-02-07] MEDS ORDERED: POTASSIUM CHLORIDE 20 MEQ TAB.PRT.SR PO ONE (12:00)
[2022-02-07 12:11] LABS: ERYTHROCYTE SEDIMENTATION RATE 10 MM/HR (0-15)
[2022-02-07] MEDS: DECADRON 4 MG TABLET PO SCH (12:27)
[2022-02-07] MEDS: AZITHROMYCIN 500 MG in NS 250 ML IV SCH (12:27)
--- NOTE | 2022-02-07 17:45 | NUR ---
Dietitian Recommendations * Cardiac diet, Ensure Enlive TID (ONS yields 1050 kcal/day, 60 gm protein/day) * Encouragement at meal times LP, MS, RD Please refer to Nutrition Assessment for details. Addendum: 02/08/22 at [address] Amended: Links added.
[2022-02-08] VITALS (7 sets, daily range): BP systolic 117–139
[2022-02-08] MEDS: VANCOMYCIN HCL 1,000 MG in NS 250 ML IV SCH (01:45)
[2022-02-08 07:19] LABS: BASOPHILS % (AUTO) 0.1 % (0.0-2.0); HEMATOCRIT 35.1 % (36-54); HEMOGLOBIN 12.5 g/dL (14.0-18.0); LYMPHOCYTES # (AUTO) 0.6 K/uL (1.0-5.5); LYMPHOCYTES % (AUTO) 5.2 % (20.5-51.5); MEAN CORPUSCULAR HEMOGLOBIN 30 pg (27-31); MEAN CORPUSCULAR HGB CONC 36 % (32-36); MEAN CORPUSCULAR VOLUME 84 fL (79.0-98.0); MONOCYTES # (AUTO) 0.4 K/uL (0.0-1.0); MONOCYTES % (AUTO) 3.1 % (1.7-9.3); NEUTROPHILS # (AUTO) 11.1 K/uL (1.8-7.7); NEUTROPHILS % (AUTO) 91.6 % (40.0-70.0); PLATELET COUNT (AUTO) 157 K/uL (130-430); RED BLOOD CELL COUNT(AUTO) 4.19 MIL/uL (4.2-6.2); RED CELL DISTRIBUTION WIDTH 13.4 % (9.0-15.0); WHITE BLOOD COUNT (AUTO) 12.1 K/uL (4.8-10.8)
[2022-02-08 08:29] LABS: ALANINE AMINOTRANSFERASE 24 U/L (12-78); ALBUMIN 2.8 g/dL (3.4-4.8); ANION GAP 8 (5-15); ASPARTATE AMINOTRANSFERASE 25 U/L (10-37); CALCIUM 7.7 mg/dL (8.4-11.0); CHLORIDE 105 mmol/L (98-107); GLUCOSE 116 mg/dL (70-99); PHOSPHORUS 2.7 mg/dL (2.7-4.5); POTASSIUM 3.8 mmol/L (3.5-5.1); SODIUM SERUM 139 mmol/L (136-145); TOTAL BILIRUBIN 0.6 mg/dL (0.0-1.0); UREA NITROGEN, BLOOD 15 mg/dL (8-21)
[2022-02-08 08:50] LABS: ERYTHROCYTE SEDIMENTATION RATE 13 MM/HR (0-15)
[2022-02-08] MEDS: METOPROLOL SUCCINATE 25 MG TAB.SR.24H (TOPROL XL) PO SCH (09:00)
[2022-02-08 09:05] LABS: C-REACTIVE PROTEIN QUANT < 0.2 mg/dL (0-0.5)
[2022-02-08] MEDS: CHOLECALCIFEROL (VITAMIN D-3) 400 UNIT TABLET PO SCH (09:38)
[2022-02-08] MEDS: PARoxetine HCL 20 MG TABLET PO SCH (09:38)
[2022-02-08] MEDS: ASCORBIC ACID 500 MG TABLET PO SCH (09:38)
[2022-02-08] MEDS: ENOXAPARIN SODIUM 40 MG/0.4 ML SYRINGE SUBCUT SCH (09:38)
--- NOTE | 2022-02-08 11:43 | NUR ---
Id Md Dr Monzon was called, re: approval for discharge. Spoke to
[2022-02-08] MEDS: AZITHROMYCIN 500 MG in NS 250 ML IV SCH (12:17)
[2022-02-08] MEDS: DECADRON 4 MG TABLET PO SCH (12:17)
[2022-02-08] MEDS: D5/0.45 NS 1,000 ML IV SCH (15:37)
--- NOTE | 2022-02-08 17:33 | NUR ---
Another call to ANDREW Monzon was called, re: approval to be discharged. Spoke to Antonia.
--- NOTE | 2022-02-08 17:35 | NUR ---
PHYSICAL THERAPY CO-SIGN The Physical Therapy Progress Notes documented by Negative Retoucher have been reviewed. Reviewed/Co-Signed by: July Baker PT Documentation Done by:KAYLEE KENNEDY PTA REC: HOME SAFETY EVAL Addendum: 02/08/22 at 1736 by July Baker PT Amended: Links added.
--- NOTE | 2022-02-08 18:45 | NUR ---
Mr Torres has been assessed as indicated. He is resting quietly at this time. He has been assisted with his dinner and is now eating independently
--- NOTE | 2022-02-08 19:15 | NUR ---
Handoff has been given to Santiago
--- NOTE | 2022-02-08 19:15 | NUR ---
OPENING NOTES Patient resting in bed - no s/s pain or distress noted. Respirations even and unlabored - head of bed elevated. IV site patent - no s/s redness, infection, or infiltration. Bed locked and in lowest position. Call light within reach.
[2022-02-09 01:28] VITALS: BP_SYST 148
[2022-02-09] MEDS: D5/0.45 NS 1,000 ML IV SCH ×3 (05:52→23:52)
[2022-02-09 07:00] VITALS: BP_SYST 148
[2022-02-09 07:06] LABS: BASOPHILS % (AUTO) 0.2 % (0.0-2.0); EOSINOPHILS % (AUTO) 0.1 % (0.0-4.0); HEMATOCRIT 34.1 % (36-54); HEMOGLOBIN 12.4 g/dL (14.0-18.0); LYMPHOCYTES # (AUTO) 0.7 K/uL (1.0-5.5); LYMPHOCYTES % (AUTO) 7.6 % (20.5-51.5); MEAN CORPUSCULAR HEMOGLOBIN 30 pg (27-31); MEAN CORPUSCULAR HGB CONC 36 % (32-36); MEAN CORPUSCULAR VOLUME 84 fL (79.0-98.0); MONOCYTES # (AUTO) 0.6 K/uL (0.0-1.0); MONOCYTES % (AUTO) 6.1 % (1.7-9.3); NEUTROPHILS # (AUTO) 7.8 K/uL (1.8-7.7); PLATELET COUNT (AUTO) 160 K/uL (130-430); RED BLOOD CELL COUNT(AUTO) 4.08 MIL/uL (4.2-6.2); RED CELL DISTRIBUTION WIDTH 13.5 % (9.0-15.0); WHITE BLOOD COUNT (AUTO) 9.1 K/uL (4.8-10.8)
[2022-02-09 07:19] LABS: ANION GAP 4 (5-15); CALCIUM 7.7 mg/dL (8.4-11.0); CHLORIDE 103 mmol/L (98-107); CREATININE 0.79 mg/dL (0.55-1.30); GLUCOSE 103 mg/dL (70-99); POTASSIUM 3.3 mmol/L (3.5-5.1); SODIUM SERUM 136 mmol/L (136-145); UREA NITROGEN, BLOOD 12 mg/dL (8-21)
[2022-02-09 07:34] LABS: C-REACTIVE PROTEIN QUANT < 0.2 mg/dL (0-0.5)
[2022-02-09 08:00] VITALS: BP_SYST 148
[2022-02-09 08:18] LABS: ERYTHROCYTE SEDIMENTATION RATE 12 MM/HR (0-15)
[2022-02-09] MEDS: CHOLECALCIFEROL (VITAMIN D-3) 400 UNIT TABLET PO SCH (09:20)
[2022-02-09] MEDS: ENOXAPARIN SODIUM 40 MG/0.4 ML SYRINGE SUBCUT SCH (09:20)
[2022-02-09] MEDS: PARoxetine HCL 20 MG TABLET PO SCH (09:21)
[2022-02-09] MEDS: ASCORBIC ACID 500 MG TABLET PO SCH (09:21)
[2022-02-09] MEDS: METOPROLOL SUCCINATE 25 MG TAB.SR.24H (TOPROL XL) PO SCH (09:22)
[2022-02-09] MEDS ORDERED: DEC4 PO (10:00)
[2022-02-09] MEDS: DECADRON 4 MG TABLET PO SCH (11:29)
[2022-02-09 12:02] VITALS: BP_SYST 147
[2022-02-09 16:00] VITALS: BP_SYST 153
--- NOTE | 2022-02-09 19:15 | NUR ---
END OF SHIFT REPORT GIVEN TO YUNIER CROSS. THANK YOU Addendum: 02/09/22 at 1916 by [facility] [employer], YUNIER FAYE END OF SHIFT REPORT GIVEN TO YUNIER WADDELL THANK YOU
--- NOTE | 2022-02-09 19:34 | NUR ---
OPENING RECEIVED PT FROM DAY NURSE, PT I BED ALERT, AWAKE AND STALE AT THIS TIME. VITALS TAKEN AND WITHIN NORMAL LIMITS. RESP EVEN WHILE ON RA 96%. SKIN WARM TO TOUCH AND CLEAN AND DRY. PT ON ISOLATION FOR COVID 19. NO S/S OF ANY DISTRESS OR SOB AT THIS TIME. IVF RUNNING PT TOLERATED WELL. PT ABLE TO MAKE NEEDS KNOWN. CALL LIGHT IN REACH BED TO LOWEST POSITION.
[2022-02-09] MEDS ORDERED: POTASSIUM CHLORIDE 40 MEQ in NS 250 ML IV ONE (20:15)
[2022-02-09 20:29] VITALS: BP_SYST 130
[2022-02-09] MEDS ORDERED: KCL 40 mEq in 100 mL (PREMIX) 100 ML IV ONE (21:09)
[2022-02-10 01:50] VITALS: BP_SYST 147
[2022-02-10 07:00] VITALS: BP_SYST 106
[2022-02-10 08:00] VITALS: BP_SYST 106
[2022-02-10] MEDS: PARoxetine HCL 20 MG TABLET PO SCH (08:45)
[2022-02-10] MEDS: ASCORBIC ACID 500 MG TABLET PO SCH (08:45)
[2022-02-10] MEDS: ENOXAPARIN SODIUM 40 MG/0.4 ML SYRINGE SUBCUT SCH (08:46)
[2022-02-10] MEDS: METOPROLOL SUCCINATE 25 MG TAB.SR.24H (TOPROL XL) PO SCH (08:50)
[2022-02-10] MEDS: CHOLECALCIFEROL (VITAMIN D-3) 400 UNIT TABLET PO SCH (08:50)
--- NOTE | 2022-02-10 10:16 | NUR ---
[facility]/HCP CM Ms max was called, re: to arrange [facility] and Physical therapy. (2nd call left a voice mail)
[2022-02-10 10:42] VITALS: BP_SYST 106
--- NOTE | 2022-02-10 11:38 | NUR ---
PATIENT ALERT AWAKE, CONFUSED AT TIMES. HARD OF HEARING BUT NO HEARING AIDE DURING HOSPITAL STAY. APPROPRIATE MOOD, NONDISTRESS. DC HOME TODAY. DAUGHTER THA [phone] NOTIFIED INFORMED AND AWARE THAT PATIENT WILL BE GOING HOME TODAY. DAUGHTER WILL COME AND SUPPORT SERVICES MANAGER PATIENT WITH PRIVATE TRANSPORTATION. LEFT HAND SL REMOVED-NO BLEEDING NOTED. REMOVED TELE MONITOR AND RETURNED TELE BOX TO TELE DROP FORGER. SENT ALL PERSONAL BELONGINGS WITH PATIENT. INSTRUCTED THA TO FOLLOW UP WITH PATIENT'S PCP WITHIN 1-5 DAYS OF BEING DC FROM HOSPITAL. DISCHARGE INSTRUCTIONS GIVEN TO PATIENT. MEDS SENT TO OUTSIDE PHARMACY. INFORMED AND AWARE. IF HAVE CP SOB PALPITATIONS TEMP GREATER THAN 101 AND NOT RELIEVED BY ANTI PYRETIC--GO TO NEAREST UC/ER OR CALL 911. KEEP DISTANCE AT LEAST 6 FEET AND WEAR MASK FOR COVID PRECAUTIONS. PER DAUGHTER THA, "THE WHOLE FAMILY ARE COVID +" LEFTY ALMAZAN HAS NO OTHER QUESTION ASK AT THIS TIME. THANK YOU
[2022-02-10 12:05] VITALS: BP_SYST 139
--- NOTE | 2022-02-10 12:06 | NUR ---
PATIENT'S DAUGHTER CAME TO WEIGHT CALLER PATIENT WITH PRIVATE CAR. NO OTHER QUESTIONS ASKED AT THIS TIME. THANK YOU
--- NOTE | 2022-02-10 14:49 | NUR ---
Dispo code 06.
== END 2022-02-10 12:06 | disposition home health service (06) | DRG 871 ==
LOC: SED 00:39 → STU 04:41
PROVIDERS: ADMIT Preventive Medicine Preventive Medicine/Occupational Environmental Medicine; ATTEND Preventive Medicine Preventive Medicine/Occupational Environmental Medicine
DX: A41.9 Sepsis, unspecified organism (principal); E43 Unspecified severe protein-calorie malnutrition; I21.4 Non-ST elevation (NSTEMI) myocardial infarction; J12.82 Pneumonia due to coronavirus disease 2019; U07.1 COVID-19; J96.01 Acute respiratory failure with hypoxia; N17.9 Acute kidney failure, unspecified; E87.1 Hypo-osmolality and hyponatremia; N39.0 Urinary tract infection, site not specified; E83.39 Other disorders of phosphorus metabolism; E83.51 Hypocalcemia; E83.52 Hypercalcemia; E87.5 Hyperkalemia; D64.9 Anemia, unspecified; E88.09 Other disorders of plasma-protein metabolism, not elsewhere classified; E87.6 Hypokalemia; E86.0 Dehydration; R73.9 Hyperglycemia, unspecified; D70.9 Neutropenia, unspecified; I10 Essential (primary) hypertension; Z68.26 Body mass index [BMI] 26.0-26.9, adult
CPT/HCPCS: 36415; 70450-TC; 71045; 76376; 76700-TC; 76770; 80048; 80053; 80061; 80202; 81000; 82607; 82746; 83605; 83735; 84100; 84443; 84484; 85025; 85379; 85651-TC; 86140; 87040; 87086; 87186-TC; 93005; 93306; 96361; 96365; 97110-GP; 97116-GP; 99285; G0378; J0456; J0696; J1447; J1650; J3370; J3480; J7030; J7050; J7060; J8540

== ENCOUNTER 2022-11-11 07:56 | Observation (INO) | payer OTHER ==
[~2022-11-11] VITALS: Ht 182.9 cm; Wt 88.5 kg
[~2022-11-11 07:56] MED LIST changes: +DEC4 PO; +PARO-147 PO; -PARO-63 PO
[2022-11-11 08:06] VITALS: BP_SYST 146
[2022-11-11 08:38] LABS: EOSINOPHILS # (AUTO) 0.1 K/uL (0.0-0.4); EOSINOPHILS % (AUTO) 2.9 % (0.0-4.0); HEMATOCRIT 41.5 % (36-54); HEMOGLOBIN 14.2 g/dL (14.0-18.0); LYMPHOCYTES # (AUTO) 0.7 K/uL (1.0-5.5); LYMPHOCYTES % (AUTO) 13.8 % (20.5-51.5); MEAN CORPUSCULAR HEMOGLOBIN 30 pg (27-31); MEAN CORPUSCULAR HGB CONC 34 % (32-36); MEAN CORPUSCULAR VOLUME 88 fL (79.0-98.0); MONOCYTES # (AUTO) 0.5 K/uL (0.0-1.0); MONOCYTES % (AUTO) 10.6 % (1.7-9.3); NEUTROPHILS # (AUTO) 3.4 K/uL (1.8-7.7); NEUTROPHILS % (AUTO) 71.7 % (40.0-70.0); PLATELET COUNT (AUTO) 240 K/uL (130-430); RED BLOOD CELL COUNT(AUTO) 4.74 MIL/uL (4.2-6.2); RED CELL DISTRIBUTION WIDTH 12.9 % (9.0-15.0); WHITE BLOOD COUNT (AUTO) 4.7 K/uL (4.8-10.8)
[2022-11-11 08:50] LABS: ANION GAP 8 (5-15); CALCIUM 8.5 mg/dL (8.4-11.0); CHLORIDE 104 mmol/L (98-107); CREATININE 1.16 mg/dL (0.55-1.30); GLUCOSE 106 mg/dL (70-99); UREA NITROGEN, BLOOD 15 mg/dL (8-21)
[2022-11-11 08:57] LABS: ALANINE AMINOTRANSFERASE 10 U/L (12-78); ALBUMIN 3.6 g/dL (3.4-4.8); ASPARTATE AMINOTRANSFERASE 13 U/L (10-37); PHOSPHORUS 2.8 mg/dL (2.7-4.5); TOTAL BILIRUBIN 1.2 mg/dL (0.0-1.0)
[2022-11-11] MEDS ORDERED: DECADRON 4 MG TABLET PO SCH (11:00)
[2022-11-11] MEDS ORDERED: HYDROcodone/ACETAMIN 5-325 MG TAB (NORCO/ VICODIN) PO PRN (11:00)
[2022-11-11] MEDS ORDERED: CHOLECALCIFEROL (VITAMIN D-3) 400 UNIT TABLET PO ONE (11:00)
[2022-11-11 13:21] VITALS: BP_SYST 168
[2022-11-11] MEDS ORDERED: METOPROLOL SUCCINATE 50 MG TAB.SR.24H (TOPROL XL) PO ONE (14:15)
[2022-11-11] MEDS ORDERED: LOSARTAN POTASSIUM 50 MG TABLET (COZAAR) PO ONE (14:15)
[2022-11-11] MEDS ORDERED: lisinopriL 5 MG TABLET PO ONE (14:15)
[2022-11-11] MEDS ORDERED: prednisoLONE 15 MG/5 ML UDC PO ONE (15:00)
[2022-11-11] MEDS ORDERED: INDOMETHACIN 50 MG SUPP.RECT RC ONE (15:00)
[2022-11-11 16:27] VITALS: BP_SYST 142
[2022-11-11] MEDS ORDERED: MELOXICAM 7.5 MG TABLET PO ONE (18:45)
[2022-11-11 20:17] VITALS: BP_SYST 142
[2022-11-11 20:18] VITALS: BP_SYST 142
[2022-11-11] MEDS: APIXABAN 2.5 MG TABLET PO SCH (22:05)
[2022-11-12] VITALS: BP_SYST 140
[2022-11-12 05:25] LABS: ANION GAP 9 (5-15); CALCIUM 8.2 mg/dL (8.4-11.0); CHLORIDE 105 mmol/L (98-107); CREATININE 0.94 mg/dL (0.55-1.30); GLUCOSE 111 mg/dL (70-99); UREA NITROGEN, BLOOD 19 mg/dL (8-21)
[2022-11-12 05:29] LABS: BASOPHILS % (AUTO) 0.5 % (0.0-2.0); EOSINOPHILS % (AUTO) 0.3 % (0.0-4.0); HEMATOCRIT 38.8 % (36-54); HEMOGLOBIN 13.5 g/dL (14.0-18.0); LYMPHOCYTES # (AUTO) 0.5 K/uL (1.0-5.5); LYMPHOCYTES % (AUTO) 9.1 % (20.5-51.5); MEAN CORPUSCULAR HEMOGLOBIN 30 pg (27-31); MEAN CORPUSCULAR HGB CONC 35 % (32-36); MEAN CORPUSCULAR VOLUME 87 fL (79.0-98.0); MONOCYTES # (AUTO) 0.4 K/uL (0.0-1.0); MONOCYTES % (AUTO) 6.6 % (1.7-9.3); NEUTROPHILS # (AUTO) 4.7 K/uL (1.8-7.7); NEUTROPHILS % (AUTO) 83.5 % (40.0-70.0); PLATELET COUNT (AUTO) 242 K/uL (130-430); RED BLOOD CELL COUNT(AUTO) 4.47 MIL/uL (4.2-6.2); WHITE BLOOD COUNT (AUTO) 5.6 K/uL (4.8-10.8)
[2022-11-12 07:56] VITALS: BP_SYST 139
[2022-11-12] MEDS: APIXABAN 2.5 MG TABLET PO SCH (08:34)
[2022-11-12] MEDS ORDERED: ASPIRIN 325 MG TABLET PO SCH (09:00)
[2022-11-12] MEDS ORDERED: METOPROLOL SUCCINATE 25 MG TAB.SR.24H (TOPROL XL) PO SCH (09:00)
[2022-11-12] MEDS ORDERED: CHOLECALCIFEROL (VITAMIN D-3) 400 UNIT TABLET PO SCH (09:00)
[2022-11-12] MEDS ORDERED: LOSARTAN POTASSIUM 50 MG TABLET (COZAAR) PO SCH (09:00)
[2022-11-12] MEDS ORDERED: lisinopriL 5 MG TABLET PO SCH (09:00)
[2022-11-12] MEDS ORDERED: ASCORBIC ACID 500 MG TABLET PO SCH (09:00)
[2022-11-12] MEDS ORDERED: METOPROLOL SUCCINATE 50 MG TAB.SR.24H (TOPROL XL) PO SCH (09:00)
[2022-11-12] MEDS ORDERED: PARoxetine HCL 20 MG TABLET PO SCH (09:00)
[2022-11-12] MEDS ORDERED: prednisoLONE 15 MG/5 ML UDC PO SCH (09:00)
[2022-11-12 12:00] VITALS: BP_SYST 132
[2022-11-12] MEDS ORDERED: PRELO PO (13:04)
[2022-11-12] MEDS ORDERED: MELO-89 PO (13:04)
[2022-11-12 14:19] VITALS: BP_SYST 134
[2022-11-12 15:51] VITALS: BP_SYST 135
== END 2022-11-12 15:50 | disposition home or self-care (01) ==
LOC: SED 07:56 → STU 10:39
PROVIDERS: ADMIT Specialist; ATTEND Specialist
DX: R07.89 Other chest pain (principal); I48.0 Paroxysmal atrial fibrillation; F41.9 Anxiety disorder, unspecified; R35.0 Frequency of micturition; H35.30 Unspecified macular degeneration; F32.A Depression, unspecified; I10 Essential (primary) hypertension; Z79.01 Long term (current) use of anticoagulants; Z85.46 Personal history of malignant neoplasm of prostate; Z92.3 Personal history of irradiation; Z79.899 Other long term (current) drug therapy
CPT/HCPCS: 80053; 82550; 83880; 83735; 84100; 85025 ×2; 85651; 84484 ×2; 36415 ×2; 93005 ×2; 93306; 71045; 99285; 80048; 97162; G0378 ×2